=== PATIENT | male | born 1940 | race Caucasian/White ===

== ENCOUNTER → 2020-11-30 | Outpatient (CLI) | payer BC, MEDICARE ==
[~2020-11-30] MED LIST: ASPI81EC PO; ATOR40TA PO; GENT.3OPSA OS; IBUP400 PO; LISI5 PO; METO25ER PO
== END ==
LOC: LAB 11:38 → LAB SHORT 11:38
DX: D48.5 Neoplasm of uncertain behavior of skin (principal); L57.0 Actinic keratosis
CPT/HCPCS: 88305

== ENCOUNTER 2023-02-02 20:37 | Observation (INO) | payer MEDICARE, BC ==
[~2023-02-02] VITALS: Ht 170.2 cm; Wt 69.0 kg
[2023-02-02 21:31] LABS: BASOPHILS ABSOLUTE AUTO 0.02 K/mm3 (0.00-0.23); BASOPHILS PERCENT AUTO 0 % (0-2); EOSINOPHILS ABSOLUTE AUTO 0.16 K/mm3 (0.00-0.68); EOSINOPHILS PERCENT AUTO 2 % (0-6); Hematocrit 39.3 % (37.0-53.0); Hemoglobin 13.4 g/dL (13.5-17.5); IMMATURE GRAN ABSOLUTE AUTO 0.03 K/mm3 (0.00-0.10); IMMATURE GRAN PERCENT AUTO 0 % (0-1); LYMPHOCYTES ABSOLUTE AUTO 1.14 K/mm3 (0.84-5.20); LYMPHOCYTES PERCENT AUTO 14 % (21-46); MONOCYTES ABSOLUTE AUTO 0.83 K/mm3 (0.16-1.47); MONOCYTES PERCENT AUTO 10 % (4-13); Mean Corpuscular HGB 31.8 pg (26.0-34.0); Mean Corpuscular HGB Conc 34.1 g/dL (31.5-36.5); Mean Corpuscular Volume 93 fL (80-100); Mean Platelet Volume 9.1 fL (9.1-12.4); NEUTROPHILS ABSOLUTE AUTO 5.92 K/mm3 (1.96-9.15); NEUTROPHILS PERCENT AUTO 73 % (41-73); Platelet Count 190 K/mm3 (150-400); RDW Coefficient Variation 11.9 % (11.7-14.2); RDW Standard Deviation 40.8 fL (35.1-46.3); Red Blood Cell Count 4.22 M/mm3 (4.30-5.90)
[2023-02-02 21:33] LABS: D-Dimer, Quantitative 0.29 mg/L FEU (0.00-0.52); International Normalized Ratio 1.06; Prothrombin Time Results 11.1 Sec (9.7-11.5)
[2023-02-02 21:36] LABS: Albumin, Blood 3.8 g/dL (3.4-5.0); Albumin/Globulin Ratio 1.3 (0.8-1.8); Bilirubin, Total 0.9 mg/dL (0.1-1.0); Bun/Creatinine Ratio 16.9 (12.0-20.0); Calcium, Blood 9.3 mg/dL (8.5-10.1); Creatinine, Blood 2.01 mg/dL (0.60-1.20); Potassium, Blood 4.5 mmol/L (3.5-5.5); Total Protein, Blood 6.8 g/dL (6.4-8.2)
[2023-02-03] MEDS ORDERED: Crestor20 MG PO (00:34)
[2023-02-03] MEDS ORDERED: LISI5 PO (00:34)
[2023-02-03] MEDS ORDERED: XARELTO20 MG PO (00:34)
[2023-02-03 00:52] LABS: Anti-Xa UFH, PHA Monitoring 0.12 IU/mL
[2023-02-03] MEDS ORDERED: Aspir 8181 MG PO (01:20)
[2023-02-03] MEDS ORDERED: MULVITA PO (01:20)
[2023-02-03 01:26] VITALS: BP 168/76
--- NOTE | 2023-02-03 01:45 | NUR ---
ADMIT PATIENT ADMITTED FROM ER AT 0120. PATIENT SETTLED INTO ROOM. PATIENT ORIENTED TO ROOM. FIRE SAFETY EDUCATION COMPLETED. PATIENT DENIES CHEST PAIN, NAUSEA, AND SHORTNESS OF BREATH. ADMISSION COMPLETED. HEPARIN DRIP STARTED AT 15UNITS/KG/HR PER PHARMACY. TELE ORDERED. PATIENT ASKED THIS RN TO UPDATE . NUMBER VERIFIED WITH PATIENT. ATTEMPTED TO CALL X2, NO ANSWER. PATIENT NOTIFIED. PATIENT NPO. CALL LIGHT IN REACH, WILL CONTINUE TO MONITOR.
--- NOTE | 2023-02-03 05:38 | NUR ---
SHIFT SUMMARY PATIENT DENIES PAIN, NAUSEA, AND SHORTNESS OF BREATH. PATIENT DENIES CHEST PAIN. PATIENT ON HEPARIN DRIP AT 15UNITS/KG/HR. PATIENT SLEPT MOST OF NIGHT AFTER ADMISSION. PATIENT ON TELE, SR AT 82 PER DIRECTOR REVENUE. PATIENT UPDATED ON ADMISSION AND PLAN OF CARE. PATIENT IS INDEPENDENT IN ROOM. PATIENT IS A&O X4. PATIENT IS PLEASANT AND COOPERATIVE WITH CARE.
[2023-02-03 07:59] VITALS: BP 152/79
--- NOTE | 2023-02-03 14:09 | NUR ---
DISCHARGE NOTE MR TSE WAS DISCHARGED HOME AT 1355. HE AMBULATED INDEPENDENTLY FROM MEDICAL UNIT, DECLINED A WHEELCHAIR. 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 HE DECLINED THE STRESS TEST AND DECLINED THE ECHO. HE HAS BEEN PAIN FREE THIS SHIFT, NO CP, NO SOB. PIV REMOVED INTACT AND PT DISCHARGED AT 1355.
== END 2023-02-03 13:56 | disposition home or self-care (01) ==
LOC: ER 20:37 → MEDS 20:38
PROVIDERS: Emergency Medicine; Family Medicine Adult Medicine; ADMIT Internal Medicine
DX: R07.9 Chest pain, unspecified (principal); K80.20 Calculus of gallbladder without cholecystitis without obstruction; Z95.1 Presence of aortocoronary bypass graft
CPT/HCPCS: 36415; 71045; 76705; 80053; 83690; 83880; 84484; 85025; 85379; 85520; 85610; 85730; 93005; 93010; 93306; 96374; 99285-25; G0378; J1644

== ENCOUNTER 2024-11-10 10:57 | Inpatient (IN) | payer MEDICARE, BC ==
[~2024-11-10] VITALS: Ht 170.2 cm; Wt 62.9 kg
[~2024-11-10 10:57] MED LIST changes: +Aspir 8181 MG PO; +MULVITA PO; +ROSUVASTATIN CA20 MG PO; +XARELTO20 MG PO
[2024-11-10 11:45] LABS: BASOPHILS ABSOLUTE AUTO 0.05 K/mm3 (0.00-0.23); BASOPHILS PERCENT AUTO 0 % (0-2); EOSINOPHILS ABSOLUTE AUTO 0.22 K/mm3 (0.00-0.68); EOSINOPHILS PERCENT AUTO 2 % (0-6); Hematocrit 20.3 % (37.0-53.0); Hemoglobin 6.5 g/dL (13.5-17.5); IMMATURE GRAN ABSOLUTE AUTO 0.11 K/mm3 (0.00-0.10); IMMATURE GRAN PERCENT AUTO 1 % (0-1); LYMPHOCYTES ABSOLUTE AUTO 1.47 K/mm3 (0.84-5.20); LYMPHOCYTES PERCENT AUTO 11 % (21-46); MONOCYTES ABSOLUTE AUTO 1.46 K/mm3 (0.16-1.47); MONOCYTES PERCENT AUTO 11 % (4-13); Mean Corpuscular HGB Conc 32.0 g/dL (31.5-36.5); Mean Corpuscular Volume 94 fL (80-100); NEUTROPHILS ABSOLUTE AUTO 9.67 K/mm3 (1.96-9.15); NEUTROPHILS PERCENT AUTO 75 % (41-73); NRBC ABSOLUTE 0.00 K/mm3 (0.00-0.02); NRBC Auto 0.0 /100 WBC (0.0-0.2); Platelet Count 313 K/mm3 (150-400); RDW Coefficient Variation 12.8 % (11.7-14.2); RDW Standard Deviation 44.0 fL (35.1-46.3)
[2024-11-10 12:35] LABS: Alanine Aminotransfer (ALT/SGP 24.0 U/L (12-78); Albumin, Blood 3.3 g/dL (3.4-5.0); Albumin/Globulin Ratio 1.1 (0.8-1.8); Anion Gap 9.0 mmol/L (3-11); Aspartate Aminotrans (AST/SGOT 15.0 U/L (12-37); Bilirubin, Total 1.0 mg/dL (0.1-1.0); Blood Urea Nitrogen 41.0 mg/dL (8-24); CO2, Blood 18.0 mmol/L (21-32); Calcium, Blood 8.9 mg/dL (8.5-10.1); Chloride, Blood 114.0 mmol/L (98-108); Creatinine, Blood 1.94 mg/dL (0.60-1.20); Globulin, Blood 3.0 g/dL (2.2-4.0); Glucose, Blood 105.0 mg/dL (70-99); Potassium, Blood 4.0 mmol/L (3.5-5.5); Sodium, Blood 137.0 mmol/L (136-145); Total Protein, Blood 6.3 g/dL (6.4-8.2)
[2024-11-10] MEDS ORDERED: Pantoprazole Sodium 40 MG Injection IV ONE (12:55)
[2024-11-10 15:20] LABS: Ferritin, Serum 17.0 ng/mL (26-388); Total Iron Binding Capacity 405.0 ug/dL (250-450)
[2024-11-10] MEDS ORDERED: NS 1,000 ML IV ONE (15:32)
[2024-11-10] MEDS ORDERED: Sod Ferric Gluc Complx/Sucrose 125 MG in NS 100 ML IV SCH (17:00)
[2024-11-10 18:10] VITALS: BP 155/75
[2024-11-10 19:39] LABS: Hematocrit 25.4 % (37.0-53.0); Hemoglobin 8.4 g/dL (13.5-17.5)
[2024-11-10 19:50] VITALS: BP 130/67
--- NOTE | 2024-11-10 20:01 | NUR ---
SHIFT SUMMARY- PT ADMITTED THROUGH THE ED. ON ARRIVAL BLOOD TRANSFUSION WAS RUNNING AT 200ML/HR AND IV IRON RUNNING AT 100ML/HR. PT WAS IN RESP DISTRESS AFTER TRANSFERING TO THE BED. O2 SATS 100% ON 2L VIA NC. PT RESP RELAXED HE SETTLED AND HE APPEARED TO BE IN LESS DISTRESS. DR FOURNIER CAME TOP SEE HIM THIS RN NOTED SOME FINE CRACKLES AND A SMALL WHEEZE IN THE LOWER LOBES. PT PLACED ON TELE Hx AND MED REC COMPLETED. PT IN BED, CALL LIGHT IN REACH NIGHT RN TO COMPLETE ADMISSION ASSESSMENT.
[2024-11-11] VITALS (22 sets, daily range): BP systolic 111–156; BP diastolic 52–85
[2024-11-11 02:53] LABS: Hematocrit 23.5 % (37.0-53.0); Hemoglobin 7.7 g/dL (13.5-17.5)
[2024-11-11 05:35] LABS: BASOPHILS ABSOLUTE AUTO 0.03 K/mm3 (0.00-0.23); BASOPHILS PERCENT AUTO 0 % (0-2); EOSINOPHILS ABSOLUTE AUTO 0.25 K/mm3 (0.00-0.68); EOSINOPHILS PERCENT AUTO 2 % (0-6); Hematocrit 23.2 % (37.0-53.0); Hemoglobin 7.8 g/dL (13.5-17.5); IMMATURE GRAN ABSOLUTE AUTO 0.05 K/mm3 (0.00-0.10); IMMATURE GRAN PERCENT AUTO 1 % (0-1); LYMPHOCYTES ABSOLUTE AUTO 1.05 K/mm3 (0.84-5.20); LYMPHOCYTES PERCENT AUTO 10 % (21-46); MONOCYTES ABSOLUTE AUTO 1.10 K/mm3 (0.16-1.47); MONOCYTES PERCENT AUTO 10 % (4-13); Mean Corpuscular HGB Conc 33.6 g/dL (31.5-36.5); Mean Corpuscular Volume 90 fL (80-100); NEUTROPHILS ABSOLUTE AUTO 8.25 K/mm3 (1.96-9.15); NEUTROPHILS PERCENT AUTO 77 % (41-73); NRBC ABSOLUTE 0.03 K/mm3 (0.00-0.02); NRBC Auto 0.3 /100 WBC (0.0-0.2); Platelet Count 305 K/mm3 (150-400); RDW Coefficient Variation 13.3 % (11.7-14.2); RDW Standard Deviation 43.9 fL (35.1-46.3)
--- NOTE | 2024-11-11 07:51 | NUR ---
PT HAD CH TROPONINS AND C/0 CP AT 3/10 AND SOB WHEN LAYING DOWN. DISCUSSED WITH HOSPITALIST EKG PERFORMED AND 1 NITRO TAB GIVEN AND WAS EFFECTIVE. PT HAD ONE FOLLOWING EPISODE AND RESOLVED WITHIN 1-2 MIN BEFORE NITRO WAS ABLE TO BE GIVEN. PT GET SOB WITH ANY EXERTION OR WITH TALKING FOR VERY LONG.
[2024-11-11] MEDS ORDERED: AMLODIPINE BESY10 MG PO (08:49)
[2024-11-11] MEDS ORDERED: Pantoprazole Sodium 40 MG Injection IV SCH (09:00)
[2024-11-11 09:49] LABS: Hematocrit 23.2 % (37.0-53.0); Hemoglobin 7.6 g/dL (13.5-17.5)
[2024-11-11 11:09] LABS: Anion Gap 17.0 mmol/L (3-11); Blood Urea Nitrogen 43.0 mg/dL (8-24); CO2, Blood 19.0 mmol/L (21-32); Calcium, Blood 9.0 mg/dL (8.5-10.1); Chloride, Blood 108.0 mmol/L (98-108); Creatinine, Blood 1.82 mg/dL (0.60-1.20); Glucose, Blood 101.0 mg/dL (70-99); Potassium, Blood 4.7 mmol/L (3.5-5.5); Sodium, Blood 139.0 mmol/L (136-145)
--- NOTE | 2024-11-11 12:29 | NUR ---
PT TO SDS WITH TELE IN PLACE. TELE NOTIFIED OF PT TO SDS. Patient confirms NPO status and agrees with scheduled surgery. Pre-Op teaching done. Pt verbalizes understanding. History, Chart, Medications and Allergies reviewed before start of procedure.Lungs clear T/O to Auscultation. ANESTHESIA AWARE OF PT'S RECENT ECHO.
[2024-11-11] MEDS ORDERED: NS 500 ML IV SCH (13:15)
[2024-11-11] MEDS ORDERED: Benzocaine Oral Spray 0.5ML UD ONE (13:48)
--- NOTE | 2024-11-11 13:58 | NUR ---
11/11/24 1358 Francine Dwyer History, Chart, Medications and Allergies reviewed before start of procedure. MONITOR INTACT WITH CONTINUOUS PULSE OXIMETRY, CONTINUOUS END TITAL CO2, 3-LEAD EKG AND INTERMITTENT BLOOD PRESSURE. HURRICAINE SPRAY TO OROPHARYX X2 BY DR. JESUS (ANESTHESIA). O2 VIA POM INTACT THROUGHOUT SEDATION/PROCEDURE. DR. JESUS PROVIDINE ANESTHESIA SEDATION.
[2024-11-11] MEDS ORDERED: FentaNYL Citrate 50 MCG/ML 2 ML Injection ONE (14:02)
[2024-11-11] MEDS ORDERED: Albuterol 2.5 MG/3 ML VIAL INH ONE (14:25)
[2024-11-11 17:28] LABS: Hematocrit 28.5 % (37.0-53.0); Hemoglobin 9.4 g/dL (13.5-17.5)
--- NOTE | 2024-11-11 18:39 | NUR ---
SHIFT SUMMARY PT AOX4, COOPERATIVE, ABLE TO MAKE NEEDS KNOWN. PT HAS BEEN BEDREST FOR DURATION OF SHIFT. ON 2L O2 CURRENTLY. NO SIGN OF CHEST PAIN, PT IS TACHYPNEIC, RESPIRATION ABOVE 20, PULSE OX REMAINS ABOVE 95%, TELE RUNNING. HAD UPPER GI PROCEDURE TODAY, RESULTS IN CHART. PT DID HAVE BM, LOOKED BLACK AND TARRY TO THIS RN, REQUESTED BLOOD STOOL SAMPLE FROM RESIDENT, RESDIENT INFORMED THIS RN "WE WILL OBSERVE H&H TREND BEFORE GOING FORWARD WITH STOOL SAMPLE." RECIEVED 1 UNIT PRBC TODAY IN PROCEDURE. BED IN LOWEST POSITION, CALL LIGHT WITHIN REACH.
[2024-11-12 03:57] VITALS: BP 169/72
--- NOTE | 2024-11-12 04:54 | NUR ---
SHIFT SUMMARY: PT AOX4, PLEASANT AND CALLS APPROPRIATELY. COMPLAINED OF SOME SEVERE ANXIETY DUE TO NOT BEING ABLE TO GET A HOLD OF HIS WHO IS TRAVELING [place], AND HIS DAUGHTER WHOM HE DID NOT KNOW THE NUMBER FOR. PTS PHONE WAS IN HIS LOCKED CUPBOARD AND WAS SET ABIT AT EASE WHEN HE GOT THAT. STILL COMPLAINED OF SOME ANXIETY, ATARAX OREDERED AND GIVEN ALLOWING PT TO SLEEP. PT ABLE TO USE THE URINAL WITH A STANDBY ASSIST HAVING GOOD OUTPUT. PT STATES TO BE FEELING BETTER BUT STILL VERY SOB ON EXERTION, DENIES ANY CHEST PAIN. PT IN BED RESTING, BED IN LOWEST POSITION, CALL LIGHT IN REACH. CONTINUING CARE.
[2024-11-12 06:41] LABS: BASOPHILS ABSOLUTE AUTO 0.03 K/mm3 (0.00-0.23); BASOPHILS PERCENT AUTO 0 % (0-2); EOSINOPHILS ABSOLUTE AUTO 0.27 K/mm3 (0.00-0.68); EOSINOPHILS PERCENT AUTO 2 % (0-6); Hematocrit 27.5 % (37.0-53.0); Hemoglobin 9.0 g/dL (13.5-17.5); IMMATURE GRAN ABSOLUTE AUTO 0.09 K/mm3 (0.00-0.10); IMMATURE GRAN PERCENT AUTO 1 % (0-1); LYMPHOCYTES ABSOLUTE AUTO 0.96 K/mm3 (0.84-5.20); LYMPHOCYTES PERCENT AUTO 8 % (21-46); MONOCYTES ABSOLUTE AUTO 1.29 K/mm3 (0.16-1.47); MONOCYTES PERCENT AUTO 11 % (4-13); Mean Corpuscular HGB Conc 32.7 g/dL (31.5-36.5); Mean Corpuscular Volume 87 fL (80-100); NEUTROPHILS ABSOLUTE AUTO 8.98 K/mm3 (1.96-9.15); NEUTROPHILS PERCENT AUTO 77 % (41-73); NRBC ABSOLUTE 0.02 K/mm3 (0.00-0.02); NRBC Auto 0.2 /100 WBC (0.0-0.2); Platelet Count 230 K/mm3 (150-400); RDW Coefficient Variation 14.4 % (11.7-14.2); RDW Standard Deviation 45.4 fL (35.1-46.3)
[2024-11-12 07:19] LABS: Anion Gap 9.0 mmol/L (3-11); Blood Urea Nitrogen 31.0 mg/dL (8-24); CO2, Blood 19.0 mmol/L (21-32); Calcium, Blood 8.6 mg/dL (8.5-10.1); Chloride, Blood 115.0 mmol/L (98-108); Creatinine, Blood 1.65 mg/dL (0.60-1.20); Glucose, Blood 96.0 mg/dL (70-99); Potassium, Blood 3.9 mmol/L (3.5-5.5); Sodium, Blood 139.0 mmol/L (136-145)
[2024-11-12 07:47] VITALS: BP 133/77
[2024-11-12 12:39] VITALS: BP 154/66
[2024-11-12 15:33] VITALS: BP 107/86
--- NOTE | 2024-11-12 16:31 | NUR ---
SHIFT SUMMARY PT AOX4, COOPERATIVE, ABLE TO MAKE NEEDS KNOWN. PT IS SBA IN ROOM TO BATHROOM FOR VOIDING. PT DOING MUCH BETTER TODAY FAR ACTIVITY LEVEL AND O2 DEMANDS. DID TAKE OFF O2 FOR APPROX 2 HOURS WITHOUT ACUTE EVENTS. AWAITING H&H STABILIZATION BEFORE MOVING ON. TOLERATING MEDICATIONS. ON 2L O2 WHEN APPROPRIATE. BED IN LOWEST POSITION, CALL LIGHT WITHIN REACH.
[2024-11-12 19:13] VITALS: BP 124/61
[2024-11-12 20:53] LABS: Hematocrit 28.4 % (37.0-53.0); Hemoglobin 9.4 g/dL (13.5-17.5)
[2024-11-12 23:23] VITALS: BP 112/57
[2024-11-13 04:11] VITALS: BP 145/62
--- NOTE | 2024-11-13 05:12 | NUR ---
SHIFT SUMMARY: PT AOX4 CALLS APPROPRIATELY AND ABLE TO MAKE NEEDS KNOWN. SOUNDS BETTER THAN PREVIOUS SHIFT. TOLERATING MEDICATIONS WELL. DENIES SOB OR CP. NO ACUTE OVERNIGHT EVENTS. PT SLEPT WELL WITH FEW INTERUPTIONS TO VOID. PT IN BED RESTING, BED IN LOWEST POSITION, CALL LIGHT IN REACH. CONTINUING CARE.
[2024-11-13 05:31] LABS: BASOPHILS ABSOLUTE AUTO 0.03 K/mm3 (0.00-0.23); BASOPHILS PERCENT AUTO 0 % (0-2); EOSINOPHILS ABSOLUTE AUTO 0.44 K/mm3 (0.00-0.68); EOSINOPHILS PERCENT AUTO 4 % (0-6); Hematocrit 28.1 % (37.0-53.0); Hemoglobin 9.2 g/dL (13.5-17.5); IMMATURE GRAN ABSOLUTE AUTO 0.11 K/mm3 (0.00-0.10); IMMATURE GRAN PERCENT AUTO 1 % (0-1); LYMPHOCYTES ABSOLUTE AUTO 1.20 K/mm3 (0.84-5.20); LYMPHOCYTES PERCENT AUTO 11 % (21-46); MONOCYTES ABSOLUTE AUTO 1.14 K/mm3 (0.16-1.47); MONOCYTES PERCENT AUTO 11 % (4-13); Mean Corpuscular HGB Conc 32.7 g/dL (31.5-36.5); Mean Corpuscular Volume 89 fL (80-100); NEUTROPHILS ABSOLUTE AUTO 7.70 K/mm3 (1.96-9.15); NEUTROPHILS PERCENT AUTO 73 % (41-73); NRBC ABSOLUTE 0.05 K/mm3 (0.00-0.02); NRBC Auto 0.5 /100 WBC (0.0-0.2); Platelet Count 217 K/mm3 (150-400); RDW Coefficient Variation 14.4 % (11.7-14.2); RDW Standard Deviation 46.3 fL (35.1-46.3)
[2024-11-13 05:55] LABS: Anion Gap 9.0 mmol/L (3-11); Blood Urea Nitrogen 32.0 mg/dL (8-24); CO2, Blood 21.0 mmol/L (21-32); Calcium, Blood 8.8 mg/dL (8.5-10.1); Chloride, Blood 112.0 mmol/L (98-108); Creatinine, Blood 1.77 mg/dL (0.60-1.20); Glucose, Blood 92.0 mg/dL (70-99); Potassium, Blood 4.2 mmol/L (3.5-5.5); Sodium, Blood 138.0 mmol/L (136-145)
[2024-11-13 07:42] VITALS: BP 137/72
[2024-11-13] MEDS ORDERED: FERSU300 PO (12:09)
--- NOTE | 2024-11-13 17:08 | NUR ---
DISCHARGE SUMMARY: A&OX4 UPON DISCHARGE. IVs AND TELE REMOVED. PT PROVIDED VERBAL UNDERSTANDING OF DISCHARGE INSTRUCTIONS AND WAS SENT HOME WITH PACKET. PT ESCORTED SELF OUT WITHOUT STAFF ASSIST.
== END 2024-11-13 13:42 | disposition home health service (06) | DRG 811 ==
LOC: ER 10:57 → MEDS 15:43 → ERHOLD 15:43 → MEDS 18:08
PROVIDERS: Emergency Medicine; ADMIT Internal Medicine
PROC: 30233N1 Transfusion of Nonautologous Red Blood Cells into Peripheral Vein, Percutaneous Approach (ICD-10-PCS; principal; 2024-11-10)
PROC: 0DJ08ZZ Inspection of Upper Intestinal Tract, Via Natural or Artificial Opening Endoscopic (ICD-10-PCS; 2024-11-11)
DX: D50.9 Iron deficiency anemia, unspecified (principal); I21.A1 Myocardial infarction type 2; I48.92 Unspecified atrial flutter; I48.91 Unspecified atrial fibrillation; I12.9 Hypertensive chronic kidney disease with stage 1 through stage 4 chronic kidney disease, or unspecified chronic kidney disease; E78.5 Hyperlipidemia, unspecified; N18.32 Chronic kidney disease, stage 3b; Z66 Do not resuscitate; K44.9 Diaphragmatic hernia without obstruction or gangrene; I25.10 Atherosclerotic heart disease of native coronary artery without angina pectoris; K40.20 Bilateral inguinal hernia, without obstruction or gangrene, not specified as recurrent; I44.0 Atrioventricular block, first degree; F41.9 Anxiety disorder, unspecified; Z95.1 Presence of aortocoronary bypass graft; Z79.82 Long term (current) use of aspirin; Z79.01 Long term (current) use of anticoagulants
CPT/HCPCS: 36415; 36430; 71045; 74176; 80048; 80053; 82272; 82607; 82728; 82746; 83540; 83550; 83880; 84484; 85014; 85018; 85025; 86850; 86900; 86901; 86923; 93005; 93010; 93306; 94762; 96374; 97110; 97112; 97161; 99285-25; A9270; J2470; J2704; J2916; J3010; J7030; J7120; P9016

== ENCOUNTER 2024-11-18 02:59 | Observation (INO) | payer MEDICARE, BC ==
[~2024-11-18] VITALS: Ht 170.2 cm; Wt 57.0 kg
[~2024-11-18 02:59] MED LIST changes: +AMLODIPINE BESY10 MG PO; +FERSU300 PO
[2024-11-18 03:25] LABS: BASOPHILS ABSOLUTE AUTO 0.03 K/mm3 (0.00-0.23); BASOPHILS PERCENT AUTO 0 % (0-2); EOSINOPHILS ABSOLUTE AUTO 0.09 K/mm3 (0.00-0.68); EOSINOPHILS PERCENT AUTO 1 % (0-6); Hematocrit 27.8 % (37.0-53.0); Hemoglobin 8.8 g/dL (13.5-17.5); IMMATURE GRAN ABSOLUTE AUTO 0.08 K/mm3 (0.00-0.10); IMMATURE GRAN PERCENT AUTO 1 % (0-1); LYMPHOCYTES ABSOLUTE AUTO 0.81 K/mm3 (0.84-5.20); LYMPHOCYTES PERCENT AUTO 8 % (21-46); MONOCYTES ABSOLUTE AUTO 0.68 K/mm3 (0.16-1.47); MONOCYTES PERCENT AUTO 7 % (4-13); Mean Corpuscular HGB Conc 31.7 g/dL (31.5-36.5); Mean Corpuscular Volume 94 fL (80-100); NEUTROPHILS ABSOLUTE AUTO 8.47 K/mm3 (1.96-9.15); NEUTROPHILS PERCENT AUTO 83 % (41-73); NRBC ABSOLUTE 0.00 K/mm3 (0.00-0.02); NRBC Auto 0.0 /100 WBC (0.0-0.2); Platelet Count 222 K/mm3 (150-400); RDW Coefficient Variation 16.0 % (11.7-14.2); RDW Standard Deviation 51.8 fL (35.1-46.3)
[2024-11-18 03:38] LABS: Prothrombin Time Results 11.7 Sec (9.7-11.5)
[2024-11-18] MEDS ORDERED: FentaNYL Citrate 50 MCG/ML 2 ML Injection IV PRN (03:40)
[2024-11-18 03:42] LABS: Alanine Aminotransfer (ALT/SGP 229.0 U/L (12-78); Albumin, Blood 3.1 g/dL (3.4-5.0); Albumin/Globulin Ratio 1.0 (0.8-1.8); Anion Gap 8.0 mmol/L (3-11); Aspartate Aminotrans (AST/SGOT 429.0 U/L (12-37); Bilirubin, Total 1.3 mg/dL (0.1-1.0); Blood Urea Nitrogen 32.0 mg/dL (8-24); CO2, Blood 23.0 mmol/L (21-32); Calcium, Blood 8.9 mg/dL (8.5-10.1); Chloride, Blood 111.0 mmol/L (98-108); Creatinine, Blood 2.04 mg/dL (0.60-1.20); Globulin, Blood 3.1 g/dL (2.2-4.0); Glucose, Blood 153.0 mg/dL (70-99); Potassium, Blood 4.2 mmol/L (3.5-5.5); Sodium, Blood 138.0 mmol/L (136-145); Total Protein, Blood 6.2 g/dL (6.4-8.2)
[2024-11-18 08:42] VITALS: BP 141/65
[2024-11-18] MEDS ORDERED: Heparin Sodium,Porcine 5,000 UNIT/0.5 ML SDV SC SCH (09:00)
[2024-11-18 11:55] LABS: BASOPHILS ABSOLUTE AUTO 0.02 K/mm3 (0.00-0.23); BASOPHILS PERCENT AUTO 0 % (0-2); EOSINOPHILS ABSOLUTE AUTO 0.06 K/mm3 (0.00-0.68); EOSINOPHILS PERCENT AUTO 1 % (0-6); Hematocrit 28.7 % (37.0-53.0); Hemoglobin 9.1 g/dL (13.5-17.5); IMMATURE GRAN ABSOLUTE AUTO 0.04 K/mm3 (0.00-0.10); IMMATURE GRAN PERCENT AUTO 1 % (0-1); LYMPHOCYTES ABSOLUTE AUTO 0.82 K/mm3 (0.84-5.20); LYMPHOCYTES PERCENT AUTO 12 % (21-46); MONOCYTES ABSOLUTE AUTO 0.60 K/mm3 (0.16-1.47); MONOCYTES PERCENT AUTO 9 % (4-13); Mean Corpuscular HGB Conc 31.7 g/dL (31.5-36.5); Mean Corpuscular Volume 93 fL (80-100); NEUTROPHILS ABSOLUTE AUTO 5.33 K/mm3 (1.96-9.15); NEUTROPHILS PERCENT AUTO 78 % (41-73); NRBC ABSOLUTE 0.00 K/mm3 (0.00-0.02); NRBC Auto 0.0 /100 WBC (0.0-0.2); Platelet Count 189 K/mm3 (150-400); RDW Coefficient Variation 16.1 % (11.7-14.2); RDW Standard Deviation 51.3 fL (35.1-46.3)
[2024-11-18 11:59] VITALS: BP 125/78
[2024-11-18 12:22] LABS: Alanine Aminotransfer (ALT/SGP 615.0 U/L (12-78); Albumin, Blood 3.3 g/dL (3.4-5.0); Albumin/Globulin Ratio 1.2 (0.8-1.8); Anion Gap 4.0 mmol/L (3-11); Aspartate Aminotrans (AST/SGOT 882.0 U/L (12-37); Bilirubin, Total 2.3 mg/dL (0.1-1.0); Blood Urea Nitrogen 28.0 mg/dL (8-24); CO2, Blood 27.0 mmol/L (21-32); Calcium, Blood 8.9 mg/dL (8.5-10.1); Chloride, Blood 110.0 mmol/L (98-108); Creatinine, Blood 1.76 mg/dL (0.60-1.20); Globulin, Blood 2.8 g/dL (2.2-4.0); Glucose, Blood 111.0 mg/dL (70-99); Potassium, Blood 4.3 mmol/L (3.5-5.5); Sodium, Blood 137.0 mmol/L (136-145); Total Protein, Blood 6.1 g/dL (6.4-8.2)
[2024-11-18 16:08] VITALS: BP 115/53
--- NOTE | 2024-11-18 18:42 | NUR ---
SHIFT SUMMARY; ASSUMED CARE AT 700. A/A/0X4. INDEPENDANT IN ROOM WITH SBA, BED AND CHAIR ALARM FOR SAFTEY. STRESS TEST STARTED TODAY, NPO AND MIDNIGHT FOR 2ND PORTION TOMORROW. DENIES PAIN DURING SHIFT. VSS. PLEASANT AND COOPERATIVE WTIH CARE. WILL CONTINUE TO MONITOR AND TREAT UNTIL CHANGE OF SHIFT AND REPORT GIVEN TO NOC SHIFT RN.
[2024-11-18 20:12] VITALS: BP 134/69
[2024-11-18 23:50] VITALS: BP 129/66
[2024-11-19 03:29] VITALS: BP 119/54
[2024-11-19 04:33] LABS: Anion Gap 8.0 mmol/L (3-11); Blood Urea Nitrogen 23.0 mg/dL (8-24); CO2, Blood 23.0 mmol/L (21-32); Calcium, Blood 8.7 mg/dL (8.5-10.1); Chloride, Blood 110.0 mmol/L (98-108); Creatinine, Blood 1.51 mg/dL (0.60-1.20); Glucose, Blood 103.0 mg/dL (70-99); Potassium, Blood 4.1 mmol/L (3.5-5.5); Sodium, Blood 137.0 mmol/L (136-145)
--- NOTE | 2024-11-19 06:41 | NUR ---
PT ALERT AND ORIENTED. SBA TO BATHROOM. NPO FOR STRESS TEST. VITALS WNL. ON ROOM AIR. NO C/O CHEST PAIN. CALL BEEL WITHIN REACH
[2024-11-19 08:25] VITALS: BP 126/57
[2024-11-19 08:25] LABS: Alanine Aminotransfer (ALT/SGP 567.0 U/L (12-78); Albumin, Blood 2.9 g/dL (3.4-5.0); Albumin/Globulin Ratio 1.0 (0.8-1.8); Aspartate Aminotrans (AST/SGOT 463.0 U/L (12-37); Bilirubin, Direct 2.1 mg/dL (0.0-0.3); Bilirubin, Indirect 0.9 mg/dL (0.1-0.7); Bilirubin, Total 3.0 mg/dL (0.1-1.0); Globulin, Blood 3.0 g/dL (2.2-4.0); Total Protein, Blood 5.9 g/dL (6.4-8.2)
--- NOTE | 2024-11-19 08:32 | NUR ---
MD MARSHA Nice in the room and discussed the second part of the stress test to be done today and ordering a echo for the patient. patient verbalized understanding. md Nice went over lab results and that still waiting for liver pannel results and will come back to discuss those. patient verbalized understanding
--- NOTE | 2024-11-19 09:39 | NUR ---
am note this rn assumed care at 0700. vital signs stable. tele sinus rhythm. patient is alert and oriented x4. neuro is intact. perrla. patient is independent in adls and calls for staff supervision to ensure no falls. patient uses call light appropriately. patient denies pain, chest pain/pressure or shortness of breath. patient is continent of bowel and bladder. patient has scattered bruising throughout. see shift assessment fro further detials. patient to have second part of stress test this afternoon. patient had breakfast and hasnt had any food since. patient is aware that he can only have water until after stress test.
[2024-11-19 11:47] VITALS: BP 128/57
--- NOTE | 2024-11-19 14:30 | NUR ---
update md smith in the room and discussed abd mri results and unknown reason for increase liver enzymes. the plan is to monitor labs and complete second part of stress test. patient agrees to the plan.
[2024-11-19 15:09] VITALS: BP 127/74
--- NOTE | 2024-11-19 16:37 | NUR ---
update md rainey in room discussing abd of mri and discussed starting on lasix to help get the fluid out. md rainey discussed no need to do echo as echo was done last month. the results for stress test are not in and md rainey discussed that with the patient.
--- NOTE | 2024-11-19 17:04 | NUR ---
shift summary patient vital signs remain stable. tele sinus rhythm. see previous notes. no acute changes. plan remains up to date.
[2024-11-19] MEDS ORDERED: Furosemide 10 MG / ML 2ML Vial IV SCH (17:25)
[2024-11-19 20:10] VITALS: BP 139/61
[2024-11-19 23:25] VITALS: BP 121/58
[2024-11-20 03:31] VITALS: BP 120/55
[2024-11-20 04:22] LABS: Alanine Aminotransfer (ALT/SGP 435.0 U/L (12-78); Albumin, Blood 3.1 g/dL (3.4-5.0); Albumin/Globulin Ratio 1.0 (0.8-1.8); Anion Gap 9.0 mmol/L (3-11); Aspartate Aminotrans (AST/SGOT 202.0 U/L (12-37); Bilirubin, Total 2.5 mg/dL (0.1-1.0); Blood Urea Nitrogen 19.0 mg/dL (8-24); CO2, Blood 24.0 mmol/L (21-32); Calcium, Blood 8.8 mg/dL (8.5-10.1); Chloride, Blood 108.0 mmol/L (98-108); Creatinine, Blood 1.72 mg/dL (0.60-1.20); Globulin, Blood 3.0 g/dL (2.2-4.0); Glucose, Blood 99.0 mg/dL (70-99); Potassium, Blood 4.2 mmol/L (3.5-5.5); Sodium, Blood 137.0 mmol/L (136-145); Total Protein, Blood 6.1 g/dL (6.4-8.2)
--- NOTE | 2024-11-20 06:51 | NUR ---
PT ALERT AND ORIENTED X4. AMBULATING INDEPENDENTLY TO THE BATHROOM SBA. NO C/O CHEST PAIN. VITALS WNL. PT NPO FOR POSSIBLE INTERVENTION DUE TO ABNORMAL STRESS TEST.CALL BROUSSARD WITHIN REACH.
[2024-11-20 07:57] VITALS: BP 133/58
[2024-11-20] MEDS ORDERED: Isosorbide Mono30 MG PO (09:44)
--- NOTE | 2024-11-20 13:50 | NUR ---
Discharge Home Pt A&O x4. VSS. Spo2 > 92% on RA. Monitor showing NSR. Pt denying pain or discomfort. Pt expressing need to discharge home d/t pt home alone w/ broken leg. Senior Project Architect offering angiogram, pt declining. w/ order for discharge home & f/u w/ cardiology & surgery. Discharge instructions reviewed w/ pt & sent home w/ pt. Pt taken out in wheelchair w/ belongings when pt daughter arrived.
== END 2024-11-20 13:50 | disposition home or self-care (01) ==
LOC: ER 02:59 → PCU 03:00
PROVIDERS: Emergency Medicine; Family Medicine; Internal Medicine; Surgery; ADMIT Internal Medicine
DX: R07.89 Other chest pain (principal); I25.10 Atherosclerotic heart disease of native coronary artery without angina pectoris; K80.20 Calculus of gallbladder without cholecystitis without obstruction; I12.9 Hypertensive chronic kidney disease with stage 1 through stage 4 chronic kidney disease, or unspecified chronic kidney disease; N18.32 Chronic kidney disease, stage 3b; E78.5 Hyperlipidemia, unspecified; D50.9 Iron deficiency anemia, unspecified; I48.0 Paroxysmal atrial fibrillation; R94.39 Abnormal result of other cardiovascular function study; R79.89 Other specified abnormal findings of blood chemistry; I44.0 Atrioventricular block, first degree; Z66 Do not resuscitate; Z79.01 Long term (current) use of anticoagulants; Z79.82 Long term (current) use of aspirin; Z79.899 Other long term (current) drug therapy; Z95.1 Presence of aortocoronary bypass graft
CPT/HCPCS: 36415; 71260; 74181; 76705; 78452; 80048; 80053; 80076; 83690; 83735; 83880; 84484; 85025; 85610; 86140; 93005; 93010; 93017; 96372; 96374-59; 96375; 99285-25; A9270; A9500; G0378; J0706; J1644; J1938; J2785; J3010; Q9967